=== PATIENT | male | born 1985 | race Two or more races ===

== ENCOUNTER 2024-05-11 20:01 | Emergency (ER) | payer OTHER ==
[~2024-05-11] VITALS: Ht 175.3 cm; Wt 115.9 kg
[2024-05-11 20:08] VITALS: TEMP 98.2
[2024-05-11] MEDS ORDERED: EMPA10TA3 PO (20:09)
[2024-05-11 20:34] LABS: BASOPHILS % (AUTO) 0.4 % (0.0-2.0); EOSINOPHILS % (AUTO) 1.2 % (1.0-6.0); HEMATOCRIT 50.6 % (41-53); HEMOGLOBIN 17.2 g/dL (13.5-17.5); LYMPHOCYTES # (AUTO) 1.9 K/uL (1.0-4.8); LYMPHOCYTES % (AUTO) 19.1 % (22.0-44.0); MEAN CORPUSCULAR HEMOGLOBIN 30.8 pg (26.0-34.0); MEAN CORPUSCULAR HGB CONC 34.1 G/dL (31.0-37.0); MEAN CORPUSCULAR VOLUME 91 fL (80-100); MONOCYTES # (AUTO) 1.2 K/uL (0.1-1.0); MONOCYTES % (AUTO) 11.6 % (2.0-9.0); NEUTROPHILS # (AUTO) 6.7 K/uL (1.8-7.7); NEUTROPHILS % (AUTO) 67.7 % (40.0-70.0); PLATELET COUNT (AUTO) 253 K/uL (150-450); RED BLOOD CELL COUNT(AUTO) 5.59 MIL/uL (4.50-5.90); RED CELL DISTRIBUTION WIDTH 13.6 % (11.5-14.5); WHITE BLOOD COUNT (AUTO) 9.9 K/uL (4.5-11.0)
[2024-05-11 22:24] LABS: APPEARANCE,URINE CLEAR (CLEAR); BILIRUBIN,URINE NEGATIVE (NEGATIVE); COLOR,URINE LIGHT YELLOW (YELLOW); GLUCOSE, URINE (UA) >=1000 mg/dL (NEGATIVE); KETONES,URINE 40-60 mg/dL (NEGATIVE); LEUKOCYTE ESTERASE ,URINE NEGATIVE (NEGATIVE); NITRATE,URINE NEGATIVE (NEGATIVE); OCCULT BLOOD,URINE NEGATIVE (NEGATIVE); PH,URINE 8.5 (5.0-8.0); PROTEIN,URINE 30-70 mg/dL (NEGATIVE); SPECIFIC GRAVITIY, URINE 1.039 (1.003-1.030); UROBILINOGEN,URINE <=1.0 mg/dL (<=1.0)
[2024-05-11] MEDS: LORazepam 2 MG/ML VIAL IVP ONE (22:30)
[2024-05-11] MEDS: ONDANSETRON HCL 4 MG/2 ML VIAL IVP ONE (22:30)
[2024-05-11] MEDS: SODIUM CHLORIDE 0.9% 1,000 ML IV ONE ×2 (22:30→23:24)
[2024-05-11 22:35] LABS: BACTERIA,URINE Rare /HPF (None Seen); PH,URINE DRUG SCREEN 6.5 (5.0-8.0); RBC,URINE None Seen /HPF (0-2); SQUAMOUS EPITHELIAL CELL,UR Rare /LPF (None Seen); WBC,URINE None Seen /HPF (0-5)
[2024-05-11 22:40] LABS: AMPHET/METH SCREEN,URINE NEGATIVE (NEGATIVE); BARBITURATE SCREEN, URINE NEGATIVE (NEGATIVE); BENZODIAZEPINES SCREEN,URINE NEGATIVE (NEGATIVE); CANNABINOID SCREEN,URINE POSITIVE (NEGATIVE); COCAINE SCREEN,URINE POSITIVE (NEGATIVE); METHADONE SCREEN, URINE NEGATIVE (NEGATIVE); OPIATE SCREEN,URINE NEGATIVE (NEGATIVE); PHENCYCLIDINE SCREEN,URINE NEGATIVE (NEGATIVE)
[2024-05-11 22:45] LABS: ALCOHOL, URINE DRUG SCREEN NEGATIVE (NEGATIVE)
[2024-05-11 23:08] LABS: ANION GAP 19 mmol/L (8-16); CALCIUM, TOTAL 9.4 mg/dL (8.8-10.5); CARBON DIOXIDE 18 mmol/L (22-29); CHLORIDE 97 mmol/L (98-107); CREATININE 0.93 mg/dL (0.60-1.30); GLOMERULAR FILTR. RATE CALC > 60 mL/min (>60); GLUCOSE,RANDOM 194 mg/dL (70-110); POTASSIUM 3.5 mmol/L (3.5-5.1); SODIUM SERUM 134 mmol/L (136-145); UREA NITROGEN, BLOOD 11 mg/dL (7-18)
[2024-05-12 00:18] LABS: TROPONIN I-HIGH SENSITIVITY 7 ng/L (<76)
[2024-05-12 02:13] VITALS: BP 145/97; PULSE 98; RESP 12; O2SAT 98
== END 2024-05-12 02:15 | disposition home or self-care (01) ==
LOC: EMS 20:01 → EDBD 20:01 → EMS 05-12 02:15
DX: K31.84 Gastroparesis (principal); E86.0 Dehydration; F19.122 Other psychoactive substance abuse with intoxication with perceptual disturbances; E11.9 Type 2 diabetes mellitus without complications; F12.90 Cannabis use, unspecified, uncomplicated; Z91.013 Allergy to seafood
CPT/HCPCS: 99285; 96374; 96361; 71045; 96375; 80048; 84484; 85025; 85379; 82962; 93005; 80307; 81001; 36415; J2060; J2405; J7030